=== PATIENT | male | born 1965 | race Caucasian/White ===

== ENCOUNTER → 2021-06-23 11:34 | Outpatient (BNVA) | payer SELFPAY | PROVIDERS: Visit Provider Family Medicine | DX: Z20.822 Contact with and (suspected) exposure to COVID-19 (principal) | CPT/HCPCS: 87635 ==

== ENCOUNTER → 2021-08-05 13:16 | Outpatient (BNVA) | payer SELFPAY | PROVIDERS: Visit Provider Nurse Practitioner Family | DX: J06.9 Acute upper respiratory infection, unspecified (principal); R50.9 Fever, unspecified; Z11.52 Encounter for screening for COVID-19 | CPT/HCPCS: 87400; 87635 ==

== ENCOUNTER 2023-06-29 15:02 | Emergency (ER) | payer OTHER, SELFPAY ==
[2023-06-29 15:11] VITALS: BP 135/82; PULSE 68; RESP 14; O2SAT 96; BMI 29.2
--- NOTE | 2023-06-29 15:49 | ED_ITS ---
HPI - Back Pain/Injury General: Chief Complaint: Back Pain/Injury Stated Complaint: right leg pain, right foot numbness Time Seen by Provider: 06/29/23 15:29 History of Present Illness: Presents to the ER today with complaints of back pain that radiates down his right leg all the way to his toes with numbness tingling burning and creepy crawly sensations. Patient has had 2 surgeries on his lumbar back in the past. But a week ago he went out playing golf in the first swing he noticed that sharp shooting pain is gotten worse since then. Patient started on Medrol Dosepak yesterday and today is a second day as well as taking tramadol that he has had at home and neither 1 of these is seem to help much. Review of Systems General: Reports: 10 or more systems reviewed and unremarkable except in HPI and below Physical Exam Const: COMMON NORMALS: no acute distress, average body habitus, patient oriented x3, no limitations, healthy appearing, alert and well nourished HENMT: COMMON NORMALS: normocephalic, atraumatic, hearing grossly normal bilaterally, external ears normal, Normal external nose present and moist oral mucous membranes HEAD & SCALP: normocephalic and atraumatic NOSE: Normal external nose present EXTERNAL EAR: Yes external ears normal Neck/C-Spine: COMMON NORMALS: full ROM, no lymphadenopathy, no meningeal signs, no JVD and Thyroid normal THYROID: Thyroid normal Chest: COMMONS NORMALS: normal inspection of the chest and normal palpation of entire chest wall Resp: COMMON NORMALS: normal respiratory effort, No retractions, No use of accessory muscles and clear to auscultation bilaterally AUSCULTATION: clear to auscultation bilaterally Cardio: COMMON NORMALS: no JVD, regular rate, regular rhythm, S1 normal heart sound present, S2 normal heart sound present, No gallops present (Cardio), No clicks present (Cardio) and No murmurs present (Cardio) RATE: regular rate RHYTHM: regular rhythm HEART SOUNDS: S1 normal heart sound present and S2 normal heart sound present GI: COMMON NORMALS: Normal to inspection, nondistended, normoactive bowel sounds present, Soft to palpation, non-tender, No hepatosplenomegaly present and no masses PALPATION: Yes Soft to palpation and Yes No hepatosplenomegaly present Neuro: COMMON NORMALS: patient oriented x3 SENSORIUM/ORIENTATION: Yes alert MENINGEAL SIGNS: Yes no meningeal signs Course Vital Signs: Vital signs: Vital Signs Pulse Rate 60 06/29/23 16:56 Respiratory Rate 18 06/29/23 16:56 Blood Pressure 160/99 06/29/23 16:56 Pulse Oximetry 97 06/29/23 16:56 Oxygen Delivery Me thod Room Air 06/29/23 15:11 MDM - Back Pain/Injury Medical Decision Making Presents to the ER after failing tramadol and a Medrol Dosepak for low back pain with radiculopathy. Patient has had 2 surgeries in the past. MRI was obtained that showed severe foraminal stenosis and moderate spinal stenosis in the L4-5 L5-6 region. Patient was given 1 Gravelly 10 here in ER which seemed to help with the pain. Patient be discharged with Gravelly and is told to continue the Medrol Dosepak and they are to follow-up with the pain management doc for further evaluation and treatment. 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 Differential Diagnosis Likely lumbar radiculopathy and sciatica; Unlikely strain of lumbar region, renal colic, pyelonephritis, thoracic back pain, AAA or discitis Medical Records I reviewed the patient's medical records. Labs I reviewed the patient's lab results. Radiology Impressions Lumbar Spine MRI 06/29/23 15:50 IMPRESSION: 1. No acute findings. 2. Degenerative disc disease with moderate L4-L5 and mild L5-S1 spinal canal stenosis as described. The neural foramina are also severely narrowed bilaterally at L5-S1. Discharge Plan Discharge Patient Disposition: Home Clinical Impression: Lumbar radiculopathy, Foraminal stenosis of lumbar region Lumbar spinal stenosis Qualifiers: Neurogenic claudication status: unspecified Qualified Code(s): M48.061 - Spinal stenosis, lumbar region without neurogenic claudication Condition: Stable Prescriptions: New hydrocodone-acetaminophen 10-325 mg tablet 1 tab PO Q6H PRN (Reason: pain) Qty: 14 0RF No Action benzonatate [Tessalon Perles] 100 mg capsule 100 mg PO TID PRN (Reason: cough) Qty: 60 3RF azithromycin [Zithromax Z-Efrain] 250 mg tablet See Rx Instructions PO .COMPLEX Qty: 6 0RF Rx Instructions: take 500 mg today (day 1), then 250 mg for 4 days (days 2-5) PO methylprednisolone [Medrol (Efrain)] 4 mg tablets,dose pack See Rx Instructions PO PER PKG DIR Qty: 21 0RF Rx Instructions: PO PER PKG DIR Ed A-Hist DM 4-10-15 mg/5 mL liquid 5 ml PO Q6H PRN (Reason: cold symptoms) Qty: 160 0RF valacyclovir [Valtrex] 1 gram tablet 2,000 mg PO BID 1 Days Qty: 4 0RF cefdinir 300 mg capsule 300 mg PO BID Qty: 20 0RF methylprednisolone [Medrol (Efrain)] 4 mg tablets,dose pack See Rx Instructions PO PER PKG DIR Qty: 21 0RF Rx Instructions: PO PER PKG DIR Ed A-Hist DM 4-10-10 mg tablet 1 tab PO Q6H PRN (Reason: allergy symptoms) Qty: 30 0RF dicyclomine 20 mg tablet 20 mg PO BID Qty: 60 3RF amoxicillin-pot clavulanate [Augmentin] 875-125 mg tablet 1 tab PO BID 10 Days Qty: 20 0RF fexofenadine-pseudoephedrine [Angelica-D 12 Hour] 60-120 mg tablet extended release 12 hr 1 tab PO Q12H PRN (Reason: allergy symptoms) Qty: 60 1RF celecoxib [Celebrex] 200 mg capsule 200 mg PO DAILY Qty: 30 3RF Contrave 8-90 mg tablet extended release See Rx Instructions .ROUTE .COMPLEX Qty: 120 2RF Dose Instruction: TAKE TWO TABLETS BY MOUTH TWICE DAILY Rx Instructions: TAKE TWO TABLETS BY MOUTH TWICE DAILY methylprednisolone [Medrol (Efrain)] 4 mg tablets,dose pack See Rx Instructions PO PER PKG DIR Qty: 21 0RF Rx Instructions: PO PER PKG DIR Discharge Orders: Discharge ED (Routine); Ordered 06/29/23 Ordered By: Hugo Augustin Patient Instructions: Opioid Safety, Pain Management Activity Restrictions/Additional Instructions: Continue and finish your Medrol Dosepak as directed, please take all pain medicine as directed as needed. Please follow-up with your family practice doc and/or referral referral to pain management may be warranted. Coding Level of Care Code ED Gauger Chief for Wade Mar
--- NOTE | 2023-06-29 15:50 | MRR_ITS ---
PROCEDURE INFORMATION: Exam: MR Lumbar Spine Without Contrast Exam date and time: 06/29/2023 4:05 PM Age: 58 years old Clinical indication: Low back pain; Prior surgery; Surgery date: 6+ months; Surgery type: L-spine; Additional info: Lbp, radiculopathy/paresthesia down right let, prior surgeri TECHNIQUE: Imaging protocol: Magnetic resonance imaging of the lumbar spine without contrast. COMPARISON: No relevant prior studies available. FINDINGS: Bones/joints: There is minimal retrolisthesis of L5 on S1 measuring 3 mm. The alignment is otherwise near anatomic. The vertebral body heights are maintained. There is disc space height loss with desiccation L4-S1 with small anterior osteophytes. No suspicious marrow signal. 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 Spinal cord: Visualized cord, conus medullaris and cauda equina are unremarkable without compression. L1-L2: No significant disc bulge or herniation. No severe spinal canal stenosis. No significant neural foraminal narrowing. L2-L3: No significant disc bulge or herniation. No severe spinal canal stenosis. No significant neural foraminal narrowing. L3-L4: L3-L4 minimal saddle shaped disc bulging is seen without stenosis. L4-L5: L4-L5 there is mild diffuse disc bulging with superimposed central focal disc protrusion causing moderate stenosis of the spinal canal. Degenerative facet arthrosis is also present with mild narrowing of the right neural foramen. L5-S1: L5-S1 diffuse disc bulging and degenerative facet arthrosis is present with mild narrowing of the spinal canal. The neural foramina are severely narrowed on both sides. Possible left-sided hemilaminectomy postoperative changes. Soft tissues: Unremarkable. Kidneys and ureters: 2 cm T2 hyperintense lesion in the posterior midpole right kidney most likely a cyst. MR/MR lumbar spine wo con* [id number] IMPRESSION: 1. No acute findings. 2. Degenerative disc disease with moderate L4-L5 and mild L5-S1 spinal canal stenosis as described. The neural foramina are also severely narrowed bilaterally at L5-S1.
[2023-06-29 16:56] VITALS: BP 160/99; PULSE 60; RESP 18; O2SAT 97
[2023-06-29 17:00] VITALS: BP 148/87; PULSE 57; RESP 18; O2SAT 95
[2023-06-29] MEDS: HYDROcodone-acetaminophen 10-325 mg Tablet 1 TAB PO (17:18)
[2023-06-29 18:00] VITALS: BP 161/97; PULSE 66; RESP 18; O2SAT 97
--- NOTE | 2023-07-02 11:48 | DCPLANNER ---
mechanical project manager called patient due to no primary care physician - no answer at this time.
--- NOTE | 2023-07-28 13:33 | DCPLANNER ---
executive sales manager was triggered to call patient due to no primary care physician - patient is established with Abby Aranda at the [facility].
== END 2023-06-29 18:28 | disposition home or self-care (01) ==
PROVIDERS: Emergency Provider Emergency Medicine; PCP Nurse Practitioner Family
DX: M48.061 Spinal stenosis, lumbar region without neurogenic claudication (principal); M54.16 Radiculopathy, lumbar region
CPT/HCPCS: 72148; 99284